=== PATIENT | female | born 1935 | race Caucasian/White ===

== ENCOUNTER → 2020-09-24 | Outpatient (CLI) | payer MEDICARE, OTHER | LOC: HEART 5 12:28 | DX: R00.1 Bradycardia, unspecified (principal); L00 Staphylococcal scalded skin syndrome ==

== ENCOUNTER → 2020-10-14 | Outpatient (CLI) | payer MEDICARE, OTHER | LOC: ECHO 11:42 | DX: R00.1 Bradycardia, unspecified (principal); L00 Staphylococcal scalded skin syndrome | CPT/HCPCS: ECHO; 93306 ==

== ENCOUNTER 2021-04-28 15:39 | Emergency (ER) | payer MEDICARE, OTHER ==
[2021-04-28 17:42] LABS: HEMOGLOBIN 14.4 gm/dl (12.3-15.3); RED BLOOD COUNT 4.96 M/UL (4.00-5.10); WHITE BLOOD COUNT 5.6 K/UL (4.5-11.0)
[2021-04-28 17:55] LABS: BUN/CREATININE RATIO 15 (0-10)
[2021-04-28] MEDS ORDERED: DOXYCYCLINE MO100 MG PO (19:49)
[2021-04-28] MEDS ORDERED: PREDNISONE50 MG PO (19:49)
[2021-04-28] MEDS ORDERED: PROVENTIL HFA6.7 GM INH (19:49)
== END 2021-04-28 21:05 | disposition home or self-care (01) ==
LOC: ER1 15:39
PROVIDERS: Physician Assistant
DX: J44.1 Chronic obstructive pulmonary disease with (acute) exacerbation (principal); I48.91 Unspecified atrial fibrillation; E11.9 Type 2 diabetes mellitus without complications; Z20.822 Contact with and (suspected) exposure to COVID-19; I10 Essential (primary) hypertension; Z88.0 Allergy status to penicillin; Z87.891 Personal history of nicotine dependence
CPT/HCPCS: 0240U; 71045; 80053; 82550; 82553; 83874; 84484; 85025; 93005; 96374; 99285; J2930

== ENCOUNTER 2021-06-21 10:20 | Inpatient (IN) | payer MEDICARE, OTHER ==
[~2021-06-21] VITALS: Ht 162.6 cm; Wt 55.3 kg
[~2021-06-21 10:20] MED LIST: DOXYCYCLINE MO100 MG PO; PREDNISONE50 MG PO; PROVENTIL HFA6.7 GM INH
[2021-06-21 12:01] LABS: BUN/CREATININE RATIO 16 (0-10)
[2021-06-21 12:22] LABS: HEMOGLOBIN 15.3 gm/dl (12.3-15.3); RED BLOOD COUNT 5.28 M/UL (4.00-5.10)
[2021-06-22 02:02] LABS: HEMOGLOBIN 14.6 gm/dl (12.3-15.3); RED BLOOD COUNT 5.21 M/UL (4.00-5.10); WHITE BLOOD COUNT 8.9 K/UL (4.5-11.0)
[2021-06-22 02:40] LABS: BUN/CREATININE RATIO 18 (0-10)
[2021-06-22] MEDS ORDERED: METFORMIN HCL500 MG PO (09:57)
[2021-06-22] MEDS ORDERED: PREMARIN0.625 MG PO ×2 (09:57→10:06)
[2021-06-22] MEDS ORDERED: METOPROLOL SUCC25 MG PO (09:58)
[2021-06-22] MEDS ORDERED: LEVOTHYROXINE88 MCG PO (09:58)
[2021-06-22] MEDS ORDERED: CRESTOR20 MG PO (09:58)
[2021-06-22] MEDS ORDERED: DIGOXIN125 MCG PO (10:02)
[2021-06-22] MEDS ORDERED: ADULT LOW DOSE81 MG PO (10:04)
[2021-06-22] MEDS ORDERED: NITROSTAT 0.40.4 MG PO (10:05)
[2021-06-22] MEDS ORDERED: VITAMIN D21250 MCG PO (10:07)
[2021-06-23 06:25] LABS: HEMOGLOBIN 14.5 gm/dl (12.3-15.3); RED BLOOD COUNT 5.2 M/UL (4.00-5.10); WHITE BLOOD COUNT 8.4 K/UL (4.5-11.0)
[2021-06-24 05:20] LABS: HEMOGLOBIN 12.6 gm/dl (12.3-15.3); WHITE BLOOD COUNT 8.5 K/UL (4.5-11.0)
[2021-06-24 05:29] LABS: RED BLOOD COUNT 4.44 M/UL (4.00-5.10)
[2021-06-25 08:23] LABS: HEMOGLOBIN 12.1 gm/dl (12.3-15.3); RED BLOOD COUNT 4.41 M/UL (4.00-5.10)
[2021-06-25 08:26] LABS: WHITE BLOOD COUNT 5.2 K/UL (4.5-11.0)
[2021-06-25 09:05] LABS: BUN/CREATININE RATIO 22 (0-10)
[2021-06-26 03:57] LABS: HEMOGLOBIN 11.2 gm/dl (12.3-15.3); RED BLOOD COUNT 4.01 M/UL (4.00-5.10)
[2021-06-26 04:06] LABS: WHITE BLOOD COUNT 7.8 K/UL (4.5-11.0)
[2021-06-26 04:15] LABS: BUN/CREATININE RATIO 24 (0-10)
--- NOTE | 2021-06-26 09:50 | NUR ---
O2 SATURATION IS 85% ON ROOM AIR.
[2021-06-26] MEDS ORDERED: CLOPIDOGREL75 MG PO (10:09)
[2021-06-26] MEDS ORDERED: ZITHROMAX250 MG PO (10:09)
[2021-06-26] MEDS ORDERED: ISOSORBIDE MONO30 MG PO (10:09)
[2021-06-26] MEDS ORDERED: MEDROL DOSEPAK 24 MG PO (10:09)
[2021-06-26] MEDS ORDERED: IPRAT-ALBUT 0.5-3 ML NEB (10:09)
--- NOTE | 2021-06-26 11:23 | NUR ---
PTS ROOM AIR SATURATION IS 85%
== END 2021-06-26 10:04 | disposition home or self-care (01) | DRG 280 ==
LOC: ER1 10:20 → MED SURG 4 13:00 → CDU 13:00 → MED SURG 4 14:30 → CCU 06-23 09:45 → PROG CARE 06-24 17:15
PROVIDERS: Emergency Medicine; Physician Assistant; ADMIT Internal Medicine
PROC: B24BZZZ Ultrasonography of Heart with Aorta (ICD-10-PCS; 2021-06-22)
PROC: 02HV33Z Insertion of Infusion Device into Superior Vena Cava, Percutaneous Approach (ICD-10-PCS; principal; 2021-06-24)
PROC: B548ZZA Ultrasonography of Superior Vena Cava, Guidance (ICD-10-PCS; 2021-06-24)
DX: I16.0 Hypertensive urgency (principal); J96.01 Acute respiratory failure with hypoxia; I21.A1 Myocardial infarction type 2; Z20.822 Contact with and (suspected) exposure to COVID-19; J44.1 Chronic obstructive pulmonary disease with (acute) exacerbation; I47.1 Supraventricular tachycardia; I16.9 Hypertensive crisis, unspecified; H54.62 Unqualified visual loss, left eye, normal vision right eye; E11.9 Type 2 diabetes mellitus without complications; E03.9 Hypothyroidism, unspecified; E78.5 Hyperlipidemia, unspecified; Z96.1 Presence of intraocular lens; I27.20 Pulmonary hypertension, unspecified; I48.0 Paroxysmal atrial fibrillation; E86.0 Dehydration; I25.10 Atherosclerotic heart disease of native coronary artery without angina pectoris; I08.1 Rheumatic disorders of both mitral and tricuspid valves; Z98.890 Other specified postprocedural states; Z95.5 Presence of coronary angioplasty implant and graft; Z90.710 Acquired absence of both cervix and uterus; Z98.42 Cataract extraction status, left eye; Z98.41 Cataract extraction status, right eye; Z94.7 Corneal transplant status; Z88.1 Allergy status to other antibiotic agents; Z88.5 Allergy status to narcotic agent; Z88.2 Allergy status to sulfonamides; Z90.49 Acquired absence of other specified parts of digestive tract; Z87.891 Personal history of nicotine dependence; Z80.9 Family history of malignant neoplasm, unspecified; Z79.01 Long term (current) use of anticoagulants; Z79.4 Long term (current) use of insulin
CPT/HCPCS: ECHO; 0240U; 36415; 36600; 71045; 80048; 80053; 80162; 82550; 82553; 82803; 82962; 83605; 83735; 83880; 84439; 84443; 84484; 85025; 85027; 85379; 87040; 93005; 93306; 93970; 94640; 94664; 94760; 96374; 96375; 97161; 99285; A9502; C1751; J0153; J0456; J0696; J1650; J2250; J2785; J2920; J7030; Q9967; U0002

== ENCOUNTER 2021-07-18 20:44 | Emergency (ER) | payer MEDICARE, OTHER ==
[~2021-07-18 20:44] MED LIST changes: +ADULT LOW DOSE81 MG PO; +CLOPIDOGREL75 MG PO; +CRESTOR20 MG PO; +DIGOXIN125 MCG PO; +IPRAT-ALBUT 0.5-3 ML NEB; +ISOSORBIDE MONO30 MG PO; +LEVOTHYROXINE88 MCG PO; +MEDROL DOSEPAK 24 MG PO; +METFORMIN HCL500 MG PO; +METOPROLOL SUCC25 MG PO; +NITROSTAT 0.40.4 MG PO; +PREMARIN0.625 MG PO; +VITAMIN D21250 MCG PO; +ZITHROMAX250 MG PO
[2021-07-18 21:43] LABS: HEMOGLOBIN 13.9 gm/dl (12.3-15.3); RED BLOOD COUNT 4.87 M/UL (4.00-5.10); WHITE BLOOD COUNT 6.3 K/UL (4.5-11.0)
[2021-07-18] MEDS ORDERED: ZOFRAN ODT 4 MG4 MG GT (23:41)
[2021-07-18] MEDS ORDERED: VIBRAMYCIN 100100 MG GT (23:41)
== END 2021-07-19 00:35 | disposition home or self-care (01) ==
LOC: ER1 20:44
PROVIDERS: Family Medicine
DX: J44.1 Chronic obstructive pulmonary disease with (acute) exacerbation (principal); E11.9 Type 2 diabetes mellitus without complications; Z88.2 Allergy status to sulfonamides; Z88.0 Allergy status to penicillin
CPT/HCPCS: 71045; 80053; 81001; 82550; 82553; 83605; 84484; 85025; 87040; 93005; 94664; 96374; 96375; 99285; J2405; J2930

== ENCOUNTER 2021-08-16 16:04 | Emergency (ER) | payer OTHER, MEDICARE ==
[~2021-08-16 16:04] MED LIST changes: +VIBRAMYCIN 100100 MG GT; +ZOFRAN ODT 4 MG4 MG GT
[2021-08-16 17:05] LABS: HEMOGLOBIN 14.2 gm/dl (12.3-15.3); RED BLOOD COUNT 4.93 M/UL (4.00-5.10); WHITE BLOOD COUNT 6.1 K/UL (4.5-11.0)
[2021-08-16 17:37] LABS: BUN/CREATININE RATIO 14 (0-10)
== END 2021-08-16 19:12 | disposition home or self-care (01) ==
LOC: ER1 16:04 → CDU 18:30 → ER1 18:30
PROVIDERS: Physician Assistant
DX: R06.02 Shortness of breath (principal)
CPT/HCPCS: 0240U; 36600; 71045; 80053; 82550; 82553; 82803; 83605; 83735; 83880; 84484; 85025; 87040; 93005; 94664; 96374; 96375; 99285; J0696; J2930

== ENCOUNTER → 2021-08-27 | Outpatient (CLI) | payer MEDICARE, OTHER | LOC: HEART 5 10:44 | DX: R06.02 Shortness of breath (principal) | CPT/HCPCS: 36600; 71046; 82803; 94060; 94729 ==

== ENCOUNTER → 2021-08-27 | Outpatient (CLI) | payer MEDICARE, OTHER | LOC: RT 12:27 | DX: R09.02 Hypoxemia (principal) | CPT/HCPCS: 36600; 71046; 82803 ==

== ENCOUNTER → 2021-09-15 | Outpatient (CLI) | payer MEDICARE, OTHER | LOC: KOH-I 10:30 | DX: L03.119 Cellulitis of unspecified part of limb (principal); M79.604 Pain in right leg; R60.9 Edema, unspecified | CPT/HCPCS: 93971 ==

== ENCOUNTER 2021-12-05 09:37 | Emergency (ER) | payer MEDICARE, OTHER ==
[~2021-12-05] VITALS: Ht 162.6 cm; Wt 55.3 kg
[2021-12-05 10:42] LABS: HEMOGLOBIN 11.8 gm/dl (12.3-15.3); RED BLOOD COUNT 4.43 M/UL (4.00-5.10); WHITE BLOOD COUNT 6.3 K/UL (4.5-11.0)
[2021-12-05 11:03] LABS: BUN/CREATININE RATIO 15 (0-10)
== END 2021-12-05 14:00 | disposition home or self-care (01) ==
LOC: ER1 09:37
PROVIDERS: Physician Assistant
DX: U07.1 COVID-19 (principal); I25.2 Old myocardial infarction; I10 Essential (primary) hypertension; Z90.49 Acquired absence of other specified parts of digestive tract; J44.9 Chronic obstructive pulmonary disease, unspecified; H54.40 Blindness, one eye, unspecified eye; Z90.710 Acquired absence of both cervix and uterus; Z88.0 Allergy status to penicillin; Z79.02 Long term (current) use of antithrombotics/antiplatelets
CPT/HCPCS: 0240U; 36600; 71045; 80053; 82550; 82553; 82803; 84484; 85025; 87040; 93005; 99284; M0222